=== PATIENT | female | born 1970 | race Caucasian/White ===

== ENCOUNTER → 2018-05-19 19:56 | Emergency (ER) | payer BC, OTHER ==
[2018-05-19] MEDS: KETOROLAC 30 MG INJ IM (18:01)
== END | disposition home or self-care (01) ==
DX: M54.2 Cervicalgia (principal); M62.838 Other muscle spasm
CPT/HCPCS: 72040; 81025; 96372; 99284-25

== ENCOUNTER 2019-03-31 16:40 | Observation (INO) | payer BC ==
[2019-03-31] MEDS: NITROGLYCERIN 2% 1 GM OINT PKT TD (17:47)
[2019-03-31] MEDS: ASPIRIN 325 MG TAB PO (17:48)
[2019-03-31 17:53] LABS: ADD MAN DIFF? NO
[2019-03-31 17:55] LABS: WHITE BLOOD COUNT 11.4 10^3/ul (4.8-10.8)
[2019-03-31 17:55] LABS: BASOPHIL # 0.1 10^3/ul (0.0-0.1); BASOPHILS % 0.5 % (0.0-2.0); EOSINOPHILS # 0.3 10^3/ul (0.0-0.5); EOSINOPHILS % 2.6 % (0.0-7.0); HEMATOCRIT 39.3 % (37.0-47.0); LYMPHOCYTES # 4.1 10^3/ul (0.8-2.9); LYMPHOCYTES % 35.7 % (15.0-51.0); MEAN CORPUSCULAR HEMOGLOBIN 27.2 pg (29.0-33.0); MEAN CORPUSCULAR HGB CONC 33.1 g/dl (32.0-37.0); MEAN CORPUSCULAR VOLUME 82.2 fl (82.0-101.0); MEAN PLATELET VOLUME 10.3 fl (7.4-10.4); MONOCYTE # 0.9 10^3/ul (0.3-0.9); MONOCYTES % 7.5 % (0.0-11.0); NEUTROPHILS % 53.3 % (39.0-77.0); PLATELET COUNT 330 10^3/UL (140-415); RED BLOOD COUNT 4.78 10^6/ul (4.20-5.40); RED CELL DISTRIBUTION WIDTH 14.2 % (11.5-14.5)
[2019-03-31 18:15] LABS: ALANINE AMINOTRANSFERASE 19 IU/L (13-69); ALBUMIN 4.5 g/dl (3.3-4.9); ALKALINE PHOSPHATASE 122 IU/L (42-121); ANION GAP 10 (5-13); ASPARTATE AMINO TRANSFERASE 24 IU/L (15-46); BILIRUBIN,INDIRECT 0.3 mg/dl (0-1.1); BILIRUBIN,TOTAL 0.3 mg/dl (0.2-1.3); BLOOD UREA NITROGEN 23 mg/dl (7-20); CALCIUM 9.6 mg/dl (8.4-10.2); CARBON DIOXIDE 27 mmol/L (21-31); CHLORIDE 101 mmol/L (97-110); CREATININE 0.77 mg/dl (0.44-1.00); Estimated GFR > 60 mL/min (>60); GLUCOSE 114 mg/dl (70-220); SODIUM 138 mmol/L (135-144)
[2019-03-31 18:27] LABS: TROPONIN-I < 0.012 ng/ml (0.000-0.120)
[2019-03-31] MEDS ORDERED: ACETAMINOPHEN 325 MG TAB PO (19:30)
[2019-03-31] MEDS ORDERED: ONDANSETRON 4 MG INJ IV (19:30)
[2019-04-01] MEDS ORDERED: morphine 2 MG INJ IV
[2019-04-01] MEDS ORDERED: ACETAMINOPHEN 325 MG TAB PO
[2019-04-01] MEDS ORDERED: DEXTROSE 50% 50 ML SYRINGE IV ×2 (00:30)
[2019-04-01] MEDS ORDERED: GLUCOSE GEL 15 GRAM TUBE PO ×2 (00:30)
[2019-04-01] MEDS ORDERED: GLUCAGON 1 MG INJ IM (00:30)
[2019-04-01] MEDS ORDERED: GLUCOSE GEL 15 GRAM TUBE BUCCAL (00:30)
[2019-04-01 01:15] LABS: TROPONIN-I < 0.012 ng/ml (0.000-0.120)
[2019-04-01] MEDS: ACCU-CHEK XX (01:53)
[2019-04-01] MEDS: PANTOPRAZOLE (EC) 40 MG TAB PO ×2 (06:02→17:28)
[2019-04-01 06:21] LABS: ADD MAN DIFF? NO
[2019-04-01 06:24] LABS: WHITE BLOOD COUNT 13.3 10^3/ul (4.8-10.8)
[2019-04-01 06:24] LABS: BASOPHIL # 0.1 10^3/ul (0.0-0.1); BASOPHILS % 0.5 % (0.0-2.0); EOSINOPHILS # 0.3 10^3/ul (0.0-0.5); HEMATOCRIT 38.1 % (37.0-47.0); HEMOGLOBIN 12.5 g/dl (12.0-16.0); LYMPHOCYTES # 3.7 10^3/ul (0.8-2.9); LYMPHOCYTES % 27.7 % (15.0-51.0); MEAN CORPUSCULAR HEMOGLOBIN 27.2 pg (29.0-33.0); MEAN CORPUSCULAR HGB CONC 32.8 g/dl (32.0-37.0); MEAN CORPUSCULAR VOLUME 82.8 fl (82.0-101.0); MEAN PLATELET VOLUME 10.1 fl (7.4-10.4); MONOCYTES % 7.5 % (0.0-11.0); NEUTROPHIL # 8.2 10^3/ul (1.6-7.5); NEUTROPHILS % 61.8 % (39.0-77.0); PLATELET COUNT 365 10^3/UL (140-415); RED CELL DISTRIBUTION WIDTH 14.3 % (11.5-14.5)
[2019-04-01 06:58] LABS: TROPONIN-I < 0.012 ng/ml (0.000-0.120)
[2019-04-01 07:09] LABS: ANION GAP 9 (5-13); BLOOD UREA NITROGEN 18 mg/dl (7-20); CALCIUM 9.4 mg/dl (8.4-10.2); CARBON DIOXIDE 27 mmol/L (21-31); CHLORIDE 103 mmol/L (97-110); CREATININE 0.64 mg/dl (0.44-1.00); Estimated GFR > 60 mL/min (>60); GLUCOSE 117 mg/dl (70-220); POTASSIUM 3.8 mmol/L (3.5-5.1); SODIUM 139 mmol/L (135-144)
[2019-04-01] MEDS: INSULIN ASPART [NOVOLOG] 3 ML PEN SC ×4 (08:00→21:00)
[2019-04-01] MEDS: ASPIRIN (EC) 81 MG TAB PO (08:49)
[2019-04-01] MEDS: HYDROCHLOROTHIAZIDE 12.5 MG CAP PO (08:49)
[2019-04-01 11:15] LABS: ADD UMIC YES; UR ASCORBIC ACID NEGATIVE (NEGATIVE); UR BILIRUBIN (Dip) NEGATIVE (NEGATIVE); UR BLOOD (Dip) 1+ mg/dL (NEGATIVE); UR CLARITY SLIGHTLY CLOUDY (CLEAR); UR COLOR YELLOW (YELLOW); UR GLUCOSE (Dip) NEGATIVE (NEGATIVE); UR KETONES (Dip) NEGATIVE (NEGATIVE); UR LEUKOCYTE ESTERASE (Dip) 2+ Leu/ul (NEGATIVE); UR NITRITE (Dip) NEGATIVE (NEGATIVE); UR RBC 1 /HPF (0-5); UR SPECIFIC GRAVITY (Dip) 1.015 (1.003-1.030); UR SQUAMOUS EPITHELIAL CELL FEW /HPF (FEW); UR TOTAL PROTEIN (Dip) NEGATIVE (NEGATIVE); UR UROBILINOGEN (Dip) NEGATIVE (NEGATIVE); UR WBC 17 /HPF (0-5)
[2019-04-01] MEDS: BACLOFEN 10 MG TAB PO ×2 (11:33→21:11)
[2019-04-01 12:55] LABS: TROPONIN-I < 0.012 ng/ml (0.000-0.120)
[2019-04-01] MEDS: DICLOFENAC SODIUM 1% GEL 100 GM TUBE TP ×3 (13:00→21:12)
[2019-04-01] MEDS: METOPROLOL 25 MG TAB PO ×2 (15:57→21:11)
[2019-04-01] MEDS: ATORVASTATIN 20 MG TAB PO (21:11)
[2019-04-02] MEDS: ACCU-CHEK XX (02:00)
[2019-04-02] MEDS: PANTOPRAZOLE (EC) 40 MG TAB PO (06:12)
[2019-04-02 06:24] LABS: ADD MAN DIFF? NO
[2019-04-02 06:29] LABS: BASOPHIL # 0.1 10^3/ul (0.0-0.1); BASOPHILS % 0.6 % (0.0-2.0); EOSINOPHILS # 0.3 10^3/ul (0.0-0.5); HEMATOCRIT 40.6 % (37.0-47.0); HEMOGLOBIN 13.1 g/dl (12.0-16.0); LYMPHOCYTES # 3.9 10^3/ul (0.8-2.9); LYMPHOCYTES % 40.5 % (15.0-51.0); MEAN CORPUSCULAR HEMOGLOBIN 27.2 pg (29.0-33.0); MEAN CORPUSCULAR HGB CONC 32.3 g/dl (32.0-37.0); MEAN CORPUSCULAR VOLUME 84.2 fl (82.0-101.0); MEAN PLATELET VOLUME 10.3 fl (7.4-10.4); MONOCYTE # 1.2 10^3/ul (0.3-0.9); MONOCYTES % 11.8 % (0.0-11.0); NEUTROPHIL # 4.2 10^3/ul (1.6-7.5); NEUTROPHILS % 43.4 % (39.0-77.0); PLATELET COUNT 369 10^3/UL (140-415); RED BLOOD COUNT 4.82 10^6/ul (4.20-5.40); RED CELL DISTRIBUTION WIDTH 14.5 % (11.5-14.5)
[2019-04-02 06:29] LABS: WHITE BLOOD COUNT 9.7 10^3/ul (4.8-10.8)
[2019-04-02 06:35] LABS: HEMOGLOBIN A1C 6.5 % (0-5.9)
[2019-04-02 07:04] LABS: ANION GAP 8 (5-13); BLOOD UREA NITROGEN 22 mg/dl (7-20); CALCIUM 9.4 mg/dl (8.4-10.2); CARBON DIOXIDE 29 mmol/L (21-31); CHLORIDE 104 mmol/L (97-110); CREATININE 0.93 mg/dl (0.44-1.00); Estimated GFR > 60 mL/min (>60); GLUCOSE 119 mg/dl (70-220); POTASSIUM 4.4 mmol/L (3.5-5.1); SODIUM 141 mmol/L (135-144)
[2019-04-02] MEDS: INSULIN ASPART [NOVOLOG] 3 ML PEN SC (07:55)
[2019-04-02] MEDS: DICLOFENAC SODIUM 1% GEL 100 GM TUBE TP (09:08)
[2019-04-02] MEDS: ASPIRIN (EC) 81 MG TAB PO (09:08)
[2019-04-02] MEDS: HYDROCHLOROTHIAZIDE 12.5 MG CAP PO (09:08)
[2019-04-02] MEDS: METOPROLOL 25 MG TAB PO (09:08)
[2019-04-02] MEDS: BACLOFEN 10 MG TAB PO (09:08)
[2019-04-02] MEDS ORDERED: NITROFURANTOIN (SR) 100 MG CAP PO (12:00)
== END 2019-04-02 13:06 | disposition home or self-care (01) ==
LOC: E/R 16:40 → TEL 19:26
DX: M94.0 Chondrocostal junction syndrome [Tietze] (principal); N39.0 Urinary tract infection, site not specified; E11.9 Type 2 diabetes mellitus without complications; I10 Essential (primary) hypertension; E78.00 Pure hypercholesterolemia, unspecified; E78.5 Hyperlipidemia, unspecified; E66.3 Overweight; Z68.27 Body mass index [BMI] 27.0-27.9, adult; Z79.84 Long term (current) use of oral hypoglycemic drugs; D72.829 Elevated white blood cell count, unspecified; Z79.82 Long term (current) use of aspirin; Z79.4 Long term (current) use of insulin
CPT/HCPCS: 36415; 71045; 80048; 80053; 81001; 82962; 83036; 84484; 85025; 93005; 93306; 93308; 99285-25; G0378